=== PATIENT | male | born 1995 | race American Indian/Alaskan Native ===

== ENCOUNTER 2016-06-09 10:05 | Emergency (ER) | payer OTHER, MEDICAID ==
[2016-06-09 10:57] VITALS: BP 135/98
[2016-06-09] MEDS: MOTRIN PO ONE (12:59)
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
--- NOTE | 2016-06-09 14:18 | XRay Report ---
RIGHT RIBS, 3 VIEWS: History: pain. Routine views of the rib cage demonstrate normal mineralization with no significant contour abnormalities, fractures or destructive lesions. PA view of the chest demonstrates no underlying cardiopulmonary abnormalities, fluid or pneumothorax. IMPRESSION: Unremarkable right rib series.
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
== END 2016-06-09 14:51 | disposition home or self-care (01) ==
LOC: ED 10:05
DX: S16.1XXA Strain of muscle, fascia and tendon at neck level, initial encounter (principal); S20.211A Contusion of right front wall of thorax, initial encounter; M54.6 Pain in thoracic spine; M25.511 Pain in right shoulder; M62.838 Other muscle spasm; J45.909 Unspecified asthma, uncomplicated; F17.200 Nicotine dependence, unspecified, uncomplicated; V49.59XA Passenger injured in collision with other motor vehicles in traffic accident, initial encounter; X58.XXXA Exposure to other specified factors, initial encounter; Y93.9 Activity, unspecified; Y92.9 Unspecified place or not applicable; Y99.9 Unspecified external cause status
CPT/HCPCS: 72070; 72125; 99284

== ENCOUNTER 2016-07-14 19:12 | Emergency (ER) | payer OTHER, MEDICAID ==
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
[2016-07-15] MEDS ORDERED: TORADOL IM ONE (00:17)
[2016-07-15] MEDS ORDERED: FLEXERIL PO ONE (00:18)
[2016-07-15 01:15] VITALS: BP 146/79
== END 2016-07-15 01:19 | disposition home or self-care (01) ==
LOC: ED 19:12
DX: M79.1 Myalgia (principal); J45.909 Unspecified asthma, uncomplicated; F17.200 Nicotine dependence, unspecified, uncomplicated; V03.99XA Pedestrian with other conveyance injured in collision with car, pick-up truck or van, unspecified whether traffic or nontraffic accident, initial encounter; Y93.89 Activity, other specified; Y92.89 Other specified places as the place of occurrence of the external cause; Y99.8 Other external cause status
CPT/HCPCS: 96372; 99283; J1885

== ENCOUNTER 2017-08-04 19:37 | Emergency (ER) | payer MEDICAID ==
[2017-08-04 20:36] VITALS: BP 128/87
[2017-08-04 21:08] LABS: Basophils % (Auto) 0.6 % (0.0-1.8); Eosinophils # (Auto) 0.4 K/mm3 (0.0-0.4); Eosinophils % (Auto) 6.3 % (0.0-4.3); Hematocrit 50.5 % (35.5-45.6); Hemoglobin 16.8 gm/dl (11.8-15.2); Lymphocytes # (Auto) 1.6 K/mm3 (1.2-5.4); Lymphocytes % (Auto) 26.1 % (13.4-35.0); Mean Corpuscular HGB Conc 33 % (32-34); Mean Corpuscular Hemoglobin 31 pg (28-32); Mean Corpuscular Volume 92 fl (84-94); Monocytes # (Auto) 0.8 K/mm3 (0.0-0.8); Monocytes % (Auto) 13.1 % (0.0-7.3); Platelet Count 221 K/mm3 (140-440); Red Blood Count 5.49 M/mm3 (3.65-5.03); Red Cell Distribution Width 13.6 % (13.2-15.2)
[2017-08-04 21:24] LABS: BUN/Creatinine Ratio 13; Blood Urea Nitrogen 10 mg/dL (9-20); Calcium 8.9 mg/dL (8.4-10.2); Hemolysis Index 17
== END 2017-08-05 03:04 | disposition left against medical advice (07) ==
LOC: ED 19:37
DX: R51 Headache (principal); Z53.21 Procedure and treatment not carried out due to patient leaving prior to being seen by health care provider
CPT/HCPCS: 36415; 80048; 85025